=== PATIENT | male | born 1970 | race Caucasian/White ===

== ENCOUNTER 2016-09-11 15:42 | Emergency (ER) | payer SELFPAY ==
[2016-09-11] MEDS ORDERED: BACIGUENT PACKET ONE (15:47)
[2016-09-11] MEDS ORDERED: XYLOCAINE 1% HCL 20 ML MDV ONE (15:48)
[2016-09-11] MEDS ORDERED: XYLOCAINE 1% HCL 20 ML MDV IJ ONE (16:05)
[2016-09-11] MEDS ORDERED: BACIGUENT PACKET TP ONE (16:05)
[2016-09-11] MEDS ORDERED: Adacel Vial IM ONE ×2 (16:32→16:45)
--- NOTE | 2016-09-11 16:37 | ERPHSYRPT ---
- History of Present Illness Time Seen by Provider: 09/11/16 16:00 Source: patient Exam Limitations: no limitations Patient Subjective Stated Complaint: lt index finger laceration Triage Nursing Assessment: cut finger tip pad on a razor blade at work lpta. bleeding controlled. radial pulse present. approx 2.5 cm c-shaped laceration to lt index finger distal pad. no other injuries Timing/Duration: today Quality: painful Severity: moderate Location: hands Possible Causes: other (razor knife slipped, cutting left fingertip) Associated Symptoms: denies symptoms Allergies/Adverse Reactions: No Known Drug Allergies Allergy (Verified 09/11/16 15:50) Hx Tetanus, Diphtheria Vaccination/Date Given: Yes Hx Influenza Vaccination/Date Given: No Hx Pneumococcal Vaccination/Date Given: No Immunizations Up to Date: Yes - Review of Systems Constitutional: No Symptoms Eyes: No Symptoms Ears, Nose, & Throat: No Symptoms Respiratory: No Symptoms Cardiac: No Symptoms Abdominal/Gastrointestinal: No Symptoms Musculoskeletal: No Symptoms Skin: Other (laceration left fingertip tuft) Neurological: No Symptoms Psychological: No Symptoms Endocrine: No Symptoms Hematologic/Lymphatic: No Symptoms - Past Medical History Pertinent Past Medical History: Yes Neurological History: Migraines ENT History: No Pertinent History Cardiac History: No Pertinent History Respiratory History: No Pertinent History Endocrine Medical History: No Pertinent History Musculoskeletal History: No Pertinent History GI Medical History: No Pertinent History History: No Pertinent History Psycho-Social History: No Pertinent History Male Reproductive Disorders: No Pertinent History - Past Surgical History Past Surgical History: Yes Gastrointestinal: Hernia Repair Musculoskeletal: Orthopedic Surgery Other Surgical History: BACK SURGERY, C spine fusion 11/17 - Social History Smoking Status: Current every day smoker How long have you smoked: 30 Exposure to second hand smoke: No Drug Use: none Patient Lives Alone: No - Nursing Vital Signs Nursing Vital Signs: Initial Vital Signs Temperature 97.8 F Temperature Source Oral Pulse Rate 79 Respiratory Rate 18 Blood Pressure 118/73 Pain Intensity 8 - Physical Exam General Appearance: mild distress Eye Exam: PERRL/EOMI, eyes nml inspection Ears, Nose, Throat Exam: normal ENT inspection, pharynx normal Neck Exam: normal inspection, non-tender, supple, full range of motion Respiratory Exam: normal breath sounds, lungs clear Cardiovascular Exam: regular rate/rhythm, normal heart sounds, normal peripheral pulses Gastrointestinal/Abdomen Exam: soft, normal bowel sounds Extremity Exam: normal range of motion Neurologic Exam: alert, oriented x 3, cooperative Skin Exam: laceration (3 cm ellipse left fingertip tuft.) SpO2 Interpretation: normal SpO2: 94 Oxygen Delivery: Room Air Procedures - Laceration/Wound Repair Finger Wound Location: Left, hand Wound Length (cm): 3 Wound's Depth, Shape: superficial Wound Explored: clean Irrigated: Yes (saline) Hibiclens Prep: Yes Anesthesia: local, 1% Lidocaine Volume Anesthetic (ccs): 3 Wound Debrided: minimal Wound Repaired With: sutures Suture Size/Type: 4-0, prolene Number of Sutures: 4 Layer Closure?: No Sterile Dressing Applied?: Yes Splint Applied?: Yes Sling Applied?: No - Course Nursing assessment & vital signs reviewed: Yes Ordered Tests: Active Orders 24 hr Category Date Time Status Prepare for Sutures STAT Care 09/11/16 16:05 Active Sutures STAT Care 09/11/16 16:05 Active Wound Care STAT Care 09/11/16 16:05 Active Medication Summary Discontinued Medications Generic Name Dose Route Start Last Admin Trade Name Clintq PRN Reason Stop Dose Admin Bacitracin Confirm 09/11/16 15:47 Baciguent Packet Administered 09/11/16 15:48 Dose 1 gm .ROUTE .STK-MED ONE Bacitracin 0.9 gm 09/11/16 16:05 09/11/16 16:14 Baciguent Packet TP 09/11/16 16:06 0.9 gm STAT ONE Administration Lidocaine HCl Confirm 09/11/16 15:48 Xylocaine 1% Hcl 20 Ml Mdv Administered 09/11/16 15:49 Dose 5 ml .ROUTE .STK-MED ONE Lidocaine HCl 5 ml 09/11/16 16:05 09/11/16 16:14 Xylocaine 1% Hcl 20 Ml Mdv IJ 09/11/16 16:06 5 ml STAT ONE Administration - Progress Progress: improved Counseled pt/family regarding: diagnosis, need for follow-up (for suture removal 14 days) - Departure Time of Disposition: 16:30 Departure Disposition: Home Clinical Impression: Laceration of finger of left hand Qualifiers: Encounter type: initial encounter Qualified Code(s): S61.219A - Laceration without foreign body of unspecified finger without damage to nail, initial encounter Condition: Stable Critical Care Time: No Instructions: Care for a Laceration After Repair
[2016-09-11 16:58] VITALS: BP 130/70; PULSE 70; O2SAT 100
== END 2016-09-11 17:03 | disposition home or self-care (01) ==
LOC: ED 15:42
PROC: 0HQGXZZ Repair Left Hand Skin, External Approach (ICD-10-PCS; principal; 2016-09-11)
DX: S61.211A Laceration without foreign body of left index finger without damage to nail, initial encounter (principal); W26.0XXA Contact with knife, initial encounter; Y92.89 Other specified places as the place of occurrence of the external cause; Y99.0 Civilian activity done for income or pay
CPT/HCPCS: 12002; 90471; 90715; 96372; 99283

== ENCOUNTER 2016-09-27 17:58 | Emergency (ER) | payer SELFPAY ==
[2016-09-27] MEDS ORDERED: TORAdol 30 mg Injection IM ONE (18:36)
[2016-09-27] MEDS ORDERED: TORAdol 30 mg Injection ONE (18:39)
--- NOTE | 2016-09-27 18:41 | ERPHSYRPT ---
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. He has hx of headaches. He had head which began this morning while driving to work. Worsened gradually. No fever or chills. No N/T/W. No blurred vision. In the past toradol helped. He has also used fioricet. This is a typical headache for him. No eye redness or watering. Timing/Duration: today Severity of Pain-Max: moderate Severity of Pain-Current: moderate Allergies/Adverse Reactions: No Known Drug Allergies Allergy (Verified 09/27/16 18:07) Home Medications: No Home Meds 1 ea UD 09/27/16 [History] Hx Tetanus, Diphtheria Vaccination/Date Given: Yes Hx Influenza Vaccination/Date Given: No Hx Pneumococcal Vaccination/Date Given: No Immunizations Up to Date: Yes - Review of Systems Constitutional: No Fever, No Chills Eyes: No Discharge, No Eye Redness Ears, Nose, & Throat: No Symptoms Respiratory: No Symptoms Abdominal/Gastrointestinal: No Abdominal Pain, No Nausea, No Vomiting Musculoskeletal: No Back Pain, No Neck Pain Skin: No Rash Neurological: Headache, No Focal Weakness, No Parasthesia All Other Systems: Reviewed and Negative - Past Medical History Pertinent Past Medical History: Yes Neurological History: Migraines ENT History: No Pertinent History Cardiac History: No Pertinent History Respiratory History: No Pertinent History Endocrine Medical History: No Pertinent History Musculoskeletal History: No Pertinent History GI Medical History: No Pertinent History History: No Pertinent History Psycho-Social History: No Pertinent History Male Reproductive Disorders: No Pertinent History - Past Surgical History Past Surgical History: Yes Gastrointestinal: Hernia Repair Musculoskeletal: Orthopedic Surgery Other Surgical History: BACK SURGERY, C spine fusion 11/17 - Social History Smoking Status: Current every day smoker How long have you smoked: 30 Exposure to second hand smoke: No Drug Use: none Patient Lives Alone: No - Nursing Vital Signs Nursing Vital Signs: Initial Vital Signs Temperature 98.7 F Temperature Source Oral Pulse Rate 77 Respiratory Rate 22 Blood Pressure [Right Arm] 137/78 Pain Intensity 7 - Physical Exam General Appearance: alert Eye Exam: PERRL/EOMI Ears, Nose, Throat Exam: normal ENT inspection, moist mucous membranes Neck Exam: normal inspection, non-tender, supple Respiratory Exam: normal breath sounds, lungs clear Cardiovascular Exam: regular rate/rhythm, No murmur Gastrointestinal/Abdominal Exam: soft, No tenderness, No distention Extremity Exam: normal inspection, normal range of motion Mental Status Exam: alert, oriented x 3, 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 Trial of oxygen. Will give toradol like in the past. Will release with WILLETT instr. He is seeing a neurologist next week and is scheduled for MRI. He has no focal findings. Counseled pt/family regarding: diagnosis, need for follow-up - Departure Time of Disposition: 18:40 Departure Disposition: Home Clinical Impression: Headache Qualifiers: Headache type: unspecified Headache chronicity pattern: acute headache Intractability: intractable Qualified Code(s): R51 - Headache Condition: Stable Critical Care Time: No Referrals: MARTHA PIPER NP [Primary Care Provider] - Instructions: Headache Additional Instructions: HEADACHE 1. After discharge from the emergency department, you should rest at home in a cool, dark, quiet place for 12-24 hours. 2. If any of the following signs or symptoms are noticed, you should be re- evaluated right away: A. Visual changes B. Stiff Neck C. Change in quality or location of pain D. Fever E. Recurrent vomiting 3. If pain medications were prescribed or given, they may cause drowsiness. Follow up with your neurologist.
[2016-09-27 19:02] VITALS: BP 130/88; PULSE 70; O2SAT 99
== END 2016-09-27 19:01 | disposition home or self-care (01) ==
LOC: ED 17:58
DX: R51 Headache (principal)
CPT/HCPCS: 96372; 99283; J1885

== ENCOUNTER 2017-02-11 00:38 | Emergency (ER) | payer OTHER ==
[2017-02-11 00:43] VITALS: PULSE 61
[2017-02-11] MEDS ORDERED: TORAdol 30 mg Injection IM ONE (00:57)
[2017-02-11] MEDS ORDERED: TORAdol 30 mg Injection ONE (00:59)
--- NOTE | 2017-02-11 01:03 | ERPHSYRPT ---
- History of Present Illness Time Seen by Provider: 02/11/17 00:43 Source: patient Patient Subjective Stated Complaint: pt sts hx of hernias with repair bilat. Sts tonight working out with son and felt a "pop" when standing up from squat position while squatting 160 lbs. Pt sts "I probably was doing more than I should have". Pt C/O pain right groin /. Describes as sharp, causes him to have to bend over. Triage Nursing Assessment: Pt alert, oriented, answers all questions appropriately. Ambulatory to tx room hunched over. Steady gait noted. Pt holding abd. ABD soft, tender RLQ with palpation. No obvious deformity, swelling noted. + bowel sounds x 4 noted. Lung sounds CTA bilat non-labored Physician History: CC: hernia Hx: 46 y/o patient of [employer] [facility] in [facility]. He states he has had two prior hernia repairs. Lives in [facility]. Works at [employer]. Was lifting weights at a [employer] workout center [facility] and felt a pop in right groin and has right groin pain like his prior hernia. Drove self here and plans to drive self home. No fever, abd pain, vomiting. Normal urination. No hematuria. Timing/Duration: today Allergies/Adverse Reactions: No Known Drug Allergies Allergy (Verified 02/11/17 00:39) Home Medications: Butalb/Acetaminophen/Caffeine [Fioricet 50-300-40 mg Capsule] 1 each PO [History] Diclofenac Sodium [Voltaren] 0 mg PO TID 02/11/17 [History] Tizanidine HCl [Zanaflex] 4 mg PO BID 02/11/17 [History] Hx Tetanus, Diphtheria Vaccination/Date Given: Yes Hx Influenza Vaccination/Date Given: No Hx Pneumococcal Vaccination/Date Given: No Immunizations Up to Date: Yes - Review of Systems Constitutional: No Fever, No Chills Eyes: No Symptoms Ears, Nose, & Throat: No Symptoms Respiratory: No Cough Cardiac: No Chest Pain Abdominal/Gastrointestinal: No Abdominal Pain, No Nausea, No Vomiting Genitourinary Symptoms: Other (right groin hernia pain), No Dysuria, No Hematuria Skin: No Rash Neurological: No Headache All Other Systems: Reviewed and Negative - Past Medical History Pertinent Past Medical History: Yes Neurological History: Migraines ENT History: No Pertinent History Cardiac History: No Pertinent History Respiratory History: No Pertinent History Endocrine Medical History: No Pertinent History Musculoskeletal History: No Pertinent History GI Medical History: No Pertinent History History: No Pertinent History Psycho-Social History: No Pertinent History Male Reproductive Disorders: No Pertinent History - Past Surgical History Past Surgical History: Yes Gastrointestinal: Hernia Repair Musculoskeletal: Orthopedic Surgery Other Surgical History: BACK SURGERY, C spine fusion 11/17 - Social History Smoking Status: Current every day smoker How long have you smoked: since 16 Exposure to second hand smoke: No Drug Use: none Patient Lives Alone: No - Nursing Vital Signs Nursing Vital Signs: Initial Vital Signs Temperature 97.9 F Temperature Source Oral Pulse Rate 61 Respiratory Rate 16 Blood Pressure [Left Arm] 97/60 Pain Intensity 8 - Physical Exam General Appearance: alert, thin Eye Exam: PERRL/EOMI Ears, Nose, Throat Exam: normal ENT inspection, moist mucous membranes Neck Exam: normal inspection Respiratory Exam: normal breath sounds, lungs clear Cardiovascular Exam: regular rate/rhythm Gastrointestinal/Abdomen Exam: soft, other (both inguinal canals have bulge worse on right but no robbi hernia. Certainly no incarcerated hernia.), No tenderness, No distention, No mass, No guarding Male Genitalia Exam: normal genitalia, No testicular tenderness Back Exam: normal inspection, normal range of motion Extremity Exam: normal inspection, normal range of motion Neurologic Exam: alert, oriented x 3, cooperative, sensation nml, No motor deficits Skin Exam: warm, dry SpO2 Interpretation: normal SpO2: 98 Oxygen Delivery: Room Air - Course Nursing assessment & vital signs reviewed: Yes Ordered Tests: Medication Summary Generic Name Dose Route Start Last Admin Trade Name Stephanie PRN Reason Stop Dose Admin Ketorolac Tromethamine 60 mg 02/11/17 00:57 Toradol 30 Mg Injection IM 02/11/17 00:58 STAT ONE - Progress Progress Note: 02/11/17 01:00 Pt driving self so will use nonsedating toradol. He takes voltaren at home. He declines CT. Follow up with his [employer] or surgeon this week advised. Hernia instructions given. INSPECT reviewed and positive. Counseled pt/family regarding: diagnosis, need for follow-up - Departure Time of Disposition: 01:01 Departure Disposition: Home Clinical Impression: Strain of right inguinal muscle Qualifiers: Encounter type: initial encounter Qualified Code(s): S39.013A - Strain of muscle, fascia and tendon of pelvis, initial encounter Condition: Stable Critical Care Time: No Referrals: MARTHA MSITH NP [Primary Care Provider] - DANGELO TAVAREZ NP [NON-STAFF PHY W/O PRIVILEGES] - Instructions: Groin Hernia, Groin Strain Additional Instructions: No heavy lifting. Take your voltaren as already prescribed. Ice packs off and on. Follow up with MAURO Tavarez or your surgeon this week. Go to ER for vomiting, fever, abdominal pain or concerns.
[2017-02-11 01:28] VITALS: BP 108/69; O2SAT 100
== END 2017-02-11 01:30 | disposition home or self-care (01) ==
LOC: ED 00:38
DX: S39.013A Strain of muscle, fascia and tendon of pelvis, initial encounter (principal)
CPT/HCPCS: 96372; 99283; 99284; J1885